=== PATIENT | male | born 1955 | race Caucasian/White ===

== ENCOUNTER 2022-04-16 19:37 | Emergency (ER) | payer MEDICARE, SELFPAY ==
--- NOTE | ~2022-04-16 | XR_ITS ---
EXAMINATION: XR HAND, RIGHT CLINICAL INFORMATION: Pain, swelling COMPARISON: None TECHNIQUE: PA, lateral, and oblique views of the right hand. FINDINGS: There is flexion at the level of the DIP joint. In the lateral study there is a lucency through the distal aspect of the middle phalanx dorsally. Acute fracture cannot be excluded though this may be the sequela of degeneration. The distal phalanx appears foreshortened relative to the other phalange ease. There is felt to be degeneration at the DIP joint. XR/XR hand RT 2V IMPRESSION: Findings as described above. In the second digit Overall findings suggest degeneration of the DIP joint and possible old injury also involving the distal phalanx. Addition minimal lucency seen through the dorsal aspect of the distal aspect of the middle phalanx could represent a small acute fracture but correlation needs to be made. There is flexion at the level of the DIP joint.
[2022-04-16 19:48] VITALS: BP 140/80; PULSE 53; RESP 20; TEMP 35.9; O2SAT 99; BMI 29.0
--- NOTE | 2022-04-16 22:16 | ED.UPPEXIN ---
HPI - Extremity Injury (Upper) General Chief Complaint: Wound/Laceration Stated Complaint: finger infection Source: patient Mode of arrival: ambulatory Limitations: no limitations History of Present Illness HPI narrative: 67-year-old male presents for evaluation for a red swollen right index finger tip. Patient stated he smashed it with a wrench on Sunday, noted pain however the swelling had increased and is now reddened with significant pressure. Patient is unable to apply pressure to the site without agonizing pain. He was evaluated at urgent care and was referred to the emergency department. He does not report any fevers or chills, is having difficulty moving the distal phalanx but has full range of motion to the rest of the finger. complaint: injury to: finger (Right index) Onset (ago): week(s) (1) Other injuries: none Handedness: right Place: home Severity: moderate Severity scale (1-10): 7 Relieving factors: none Exacerbating factors: movement of extremity Context: direct blow Associated symptoms: denies other symptoms Treatments prior to arrival: cold therapy and NSAIDS Related Data Previous Rx's Medication Instructions Recorded amoxicillin 875 mg-potassium 1 tab PO Q12H 10 days #20 tabs 04/16/22 clavulanate 125 mg tablet Allergies Allergy/AdvReac Type Severity Reaction Status Date / Time erythromycin base AdvReac Gastrointestinal Verified 04/16/22 23:35 Upset Review of Systems Review of Systems: Constitutional: No Fever, No Chills ENT/Mouth: No Ear Pain, No Hoarseness, No sore throat Eyes: No Eye Pain, No Swelling, No Redness, No Foreign Body Cardiovascular: No Chest Pain, No SOB Respiratory: No Cough, No Dyspnea Gastrointestinal: No Nausea, No Vomiting, No Diarrhea, No abdominal Pain Genitourinary: No Dysuria, No Hematuria Musculoskeletal: positive right index finger pain, No Myalgias, No Joint Swelling Skin: No Skin lacerations, No rash Neuro: No Weakness, No Numbness, No Paresthesias, No Loss of Consciousness, No Dizziness, No Headache Psych: No Anxiety/Panic, No Depression Heme/Lymph: no easy bruising, no Lymphadenopathy Endocrine: No Polyuria, No Polydipsia Yes all other systems are reviewed and are negative PMFSH Past Medical History Attestation statement: The following information was validated with the patient. Source: old records reviewed Social History Social History Advance Directives: No Advance Directives Information Provided: No Physical Exam Vital Signs: Vital Signs: Last Vital Signs Temp 96.7 F L 04/16/22 19:48 Pulse 53 04/16/22 19:48 Resp 20 04/16/22 19:48 BP 140/80 H 04/16/22 19:48 Pulse Ox 99 04/16/22 19:48 O2 Del Method 04/16/22 19:48 BMI result Body Mass Index 29.0 Appearance: Alert. Oriented X3. No acute distress. Eyes: Pupils equal, round and reactive to light. ENT: Pharynx normal. Neck: Normal inspection. Neck supple. CVS: Normal heart rate and rhythm. Pulses normal. Respiratory: No respiratory distress. Breath sounds normal. Abdomen: Soft and nontender. Skin: Skin warm and dry. Normal skin color. Normal skin turgor. Extremities: Right distal phalanx of the index finger erythematous, with fluctuance consistent with paronychia. Neuro: No motor deficit. No sensory deficit. Cranial nerves 2-12 intact. Course Course Course Narrative: 67-year-old male presents with injury to the right index finger approximately week ago. He did smash it with a wrench. Over the past week swelling, erythema, and pain has increased. Physical exam indicates erythematous distal phalanx with fluctuance consistent with paronychia. X-rays indicate fracture without osteomyelitis. Plan is for digital block and paronychia drainage. Approximately 3 mL of purulent malodorous drainage from the site. Given Augmentin 875 mg while here, and prescription for Augmentin for 10 days. Patient does understand signs and symptoms indicating emergent intervention. Verbalized understanding of wound care and discharged home. MDM - Extremity Injury (Upper) Differential Diagnosis Differential diagnosis: Likely finger sprain, dislocation of finger and fracture of hand Medical Records Attestation: I reviewed the patient's medical records. Imaging Data Hand x-ray: Attestation: I personally reviewed and interpreted this imaging study as follows: Radiologist's impression: EXAMINATION: XR HAND, RIGHT CLINICAL INFORMATION: Pain, swelling? COMPARISON: None? TECHNIQUE: PA, lateral, and oblique views of the right hand. FINDINGS: There is flexion at the level of the DIP joint. In the lateral study there is a lucency through the distal aspect of the middle phalanx dorsally. Acute fracture cannot be excluded though this may be the sequela of degeneration. The distal phalanx appears foreshortened relative to the other phalange ease. There is felt to be degeneration at the DIP joint.? XR/XR hand RT 2V IMPRESSION: Findings as described above. In the second digit Overall findings suggest degeneration of the DIP joint and possible old injury also involving the distal phalanx. Addition minimal lucency seen through the dorsal aspect of the distal aspect of the middle phalanx could represent a small acute fracture but correlation needs to be made. There is flexion at the level of the DIP joint. Procedures Abscess I/D Site: other (Finger) Side (if applicable): right Technique: incised with blade Amount of fluid expressed (mL): 3 Sent for culture/gram staining?: No Irrigation: No Packing used?: none Nerve Block Nerve Block 1: Time out performed: Yes Local Anesthetic: lidocaine 1% Amount of anesthesia used (mL): 4 Side: right Nerve Blocks: digital Procedure Successful: Yes Patient Tolerated Procedure: well and no complications Complications: none Discharge Plan Discharge Clinical Impression: Paronychia of finger, Closed fracture of phalanx of right index finger Patient Disposition: Home, Self-Care Instructions: Finger Fracture (ED), Paronychia (ED) Additional Instructions: You were evaluated for right finger pain. X-rays indicate a fracture. You also had a paronychia, an abscess around the fingernail. We drained that abscess. Please keep dressing on for the next 3 days. Do not wash dishes until the wound is healed. Do not swim or soak in a tub until the wound is healed. You may shower and wash your hands as needed. The area will be tender. Alternate Tylenol 650 mg every 6 hours and Motrin 600 mg every 6 hours as needed for pain management. Take Augmentin 875 mg every 12 hours for the next 10 days. Thank you for choosing this emergency department for evaluation. Please follow-up with primary care physician as needed. Return to the emergency department for any new, concerning, or worsening symptoms. Prescriptions: New amoxicillin-pot clavulanate 875-125 mg tablet 1 tab PO Q12H 10 Days Qty: 20 0RF Referrals: Jack Feng MD [Primary Care Provider] - Interventions: ED Discharge Assessment Last Done: 04/17/22 00:09 Discharge Date/Time: 04/17/22 00:10
[2022-04-16] MEDS: Amoxicillin/Potassium Clav 875 MG TABLET PO (23:35)
[2022-04-16] MEDS: Lidocaine HCl 1 % MPF 5 ML VIAL SUBCUT (23:35)
== END 2022-04-17 00:10 | disposition home or self-care (01) ==
PROVIDERS: Emergency Provider Emergency Medicine; PCP Internal Medicine
DX: L03.011 Cellulitis of right finger (principal); S62.600A Fracture of unspecified phalanx of right index finger, initial encounter for closed fracture; W22.8XXA Striking against or struck by other objects, initial encounter; Y93.9 Activity, unspecified; Y92.009 Unspecified place in unspecified non-institutional (private) residence as the place of occurrence of the external cause; Y99.9 Unspecified external cause status
CPT/HCPCS: 10060; 73120; 99283; 99284